=== PATIENT | female | born 1985 | race Caucasian/White ===

== ENCOUNTER 2019-08-15 12:24 | Outpatient (RCR) | payer BC, SELFPAY ==
[2019-08-15] MEDS: RHO(D) IMMUNE GLOBULIN 300 MCG SYRINGE IM (16:25)
== END 2019-11-13 23:59 | disposition home or self-care (01) ==
LOC: ANHLAB 12:24
PROVIDERS: Visit Provider Obstetrics & Gynecology
DX: Z29.13 Encounter for prophylactic Rho(D) immune globulin (principal); O36.0990 Maternal care for other rhesus isoimmunization, unspecified trimester, not applicable or unspecified; Z3A.00 Weeks of gestation of pregnancy not specified
CPT/HCPCS: 36415; 86900; 86901; 90384; 96372; J2790

== ENCOUNTER 2019-10-21 09:58 | Observation (INO) | payer BC, SELFPAY ==
[2019-10-21 10:45] VITALS: BP 137/94; PULSE 117
--- NOTE | 2019-10-21 10:56 | PC.NURSE ---
Pt was sent down from 's office for PIH workup and rule out labor. Pt's SVE was 3-4cm in the office. Orders received for PIH labs and monitor pt for contractions.
[2019-10-21 11:00] LABS: Basophils Percent Auto 0.4 % (0.2-1.2); Eosinophils Absolute Auto 0.1 K/mm3 (0-0.3); Eosinophils Percent Auto 1.3 % (0-4.4); Hematocrit 33.7 % (37.0-47.0); Hemoglobin 10.9 g/dL (12.0-15.0); Immature Granulocyte Absolute 0.06 K/mm3 (0.00-0.031); Immature Granulocyte Percent A 0.6 % (0-0.5); Lymphocytes Absolute Auto 1.83 K/mm3 (0.9-3.2); Lymphocytes Percent Auto 19.7 % (18.3-44.2); Mean Corpuscular HGB Conc 32.3 g/dl (32-36); Mean Corpuscular Hemoglobin 26.1 pg (26-34); Mean Corpuscular Volume 80.8 fl (80-100); Monocytes Absolute Auto 0.6 K/mm3 (0.1-0.6); Monocytes Percent Auto 6.5 % (2.6-8.5); Neutrophils Absolute Auto 6.7 K/mm3 (1.3-6.7); Neutrophils Percent Auto 71.5 % (45.5-73.1); Platelet Count Result 214 k/mm3 (150-375); Red Blood Count 4.17 M/mm3 (4.2-5.4); Red Cell Distribution Width 13.3 % (11.5-14.5); White Blood Count 9.3 K/mm3 (4.5-10.0)
[2019-10-21 11:01] VITALS: BP 116/76; PULSE 108
[2019-10-21 11:10] LABS: Alanine Aminotransferase 17 U/L (4-35); Albumin Level 3.6 g/dL (3.5-5.1); Alkaline Phosphatase 156 U/L (38-126); Aspartate Amino Transferase 28 U/L (14-36); Bilirubin,Total 0.3 mg/dL (0.2-1.3); Blood Urea Nitrogen 6 mg/dL (7-17); Calcium 8.6 mg/dL (8.4-10.2); Carbon Dioxide 23 mmol/L (22-30); Chloride 105 mmol/L (98-107); Estimated Glomerular Filt Rate > 60; Glucose 136 mg/dL (65-105); Potassium 3.7 mmol/L (3.4-5.0); Sodium 134 mmol/L (137-145); Uric Acid 4.4 mg/dL (2.5-7.5)
[2019-10-21 11:13] LABS: Add Urine Microscopic? YES; Appearance Urine Cloudy (Clear); Bacteria Urine 3+ /hpf; Bilirubin Urine Negative (Negative); Blood Urine Negative (Negative); Color Urine Yellow (Yellow); Glucose Urine UA Negative (Negative); Ketones Urine Negative (Negative); Leukocyte Esterase Ur 3+ LEU/UL (NEGATIVE); Nitrate Urine Negative (Negative); Protein Urine 1+ mg/dL (Negative); Specific Grav Ur 1.012 (1.001-1.035); Squamous Epithelial Cell Urine Many /hpf (Few); Urobilinogen Urine Negative mg/dL (<2.0); WBC Urine 31-50 /hpf (0-3)
[2019-10-21 11:15] VITALS: BP 127/80; PULSE 109
[2019-10-21 11:30] VITALS: BP 129/79; PULSE 104
[2019-10-21 11:40] LABS: Creatinine Urine 51.3 mg/dL; Total Protein Urine Random 14 mg/dL
[2019-10-21 11:45] VITALS: BP 133/79; PULSE 101
[2019-10-21 12:00] VITALS: BP 126/79; PULSE 101
--- NOTE | 2019-10-21 12:52 | PC.NURSE ---
1144- called with lab results and bp's. Informed pt hasn't had any contractions since she's been here. Orders received to discharge pt home with labor precautions.
--- NOTE | 2019-10-23 08:13 | PM.OBTRLD ---
OB - Triage/Final Diagnosis Evaluation Laboratory results: Laboratory Tests 10/21/19 10/21/19 10/21/19 10:45 10:45 10:45 WBC 9.3 RBC 4.17 L Hgb 10.9 L Hct 33.7 L MCV 80.8 MCH 26.1 MCHC 32.3 RDW 13.3 Plt Count 214 MPV 11.0 H Immature Gran % (Auto) 0.6 H Neut % (Auto) 71.5 Lymph % (Auto) 19.7 [place] % (Auto) 6.5 Eos % (Auto) 1.3 Baso % (Auto) 0.4 Lymph # (Auto) 1.83 [place] # (Auto) 0.6 Eos # (Auto) 0.1 Baso # (Auto) 0.0 Abs Immat Gran (auto) 0.06 H Absolute Neuts (auto) 6.7 Absolute Nucleated RBC 0.0 Nucleated RBC % 0.0 Sodium Potassium Chloride Carbon Dioxide BUN Creatinine Estim Creat Clear Calc Estimated GFR Glucose Uric Acid Calcium Total Bilirubin AST ALT Alkaline Phosphatase Total Protein Albumin Urine Color Yellow Urine Appearance Cloudy H Urine pH 7.0 Ur Specific [place] 1.012 Urine Protein 1+ H Urine Glucose (UA) Negative Urine Ketones Negative Ur Blood (Man) Negative Urine Nitrate Negative Urine Bilirubin Negative Urine Urobilinogen Negative Ur Leukocyte Esterase 3+ H Urine RBC 3-5 H Urine WBC 31-50 H Ur Squamous Epith Cells Many H Urine Bacteria 3+ H U Random Total Protein 14 Urine Creatinine 51.3 10/21/19 10:45 WBC RBC Hgb Hct MCV MCH MCHC RDW Plt Count MPV Immature Gran % (Auto) Neut % (Auto) Lymph % (Auto) [place] % (Auto) Eos % (Auto) Baso % (Auto) Lymph # (Auto) [place] # (Auto) Eos # (Auto) Baso # (Auto) Abs Immat Gran (auto) Absolute Neuts (auto) Absolute Nucleated RBC Nucleated RBC % Sodium 134 L Potassium 3.7 Chloride 105 Carbon Dioxide 23 BUN 6 L Creatinine 0.40 L Estim Creat Clear Calc Not Reportable Estimated GFR > 60 Glucose 136 H Uric Acid 4.4 Calcium 8.6 Total Bilirubin 0.3 AST 28 ALT 17 Alkaline Phosphatase 156 H Total Protein 7.0 Albumin 3.6 Urine Color Urine Appearance Urine pH Ur Specific [place] Urine Protein Urine Glucose (UA) Urine Ketones Ur Blood (Man) Urine Nitrate Urine Bilirubin Urine Urobilinogen Ur Leukocyte Esterase Urine RBC Urine WBC Ur Squamous Epith Cells Urine Bacteria U Random Total Protein Urine Creatinine Final Diagnosis (1) False labor: Code(s): O47.9 - False labor, unspecified Status: Acute
== END 2019-10-21 12:15 | disposition home or self-care (01) ==
LOC: ANHLDR 12:03 → ANHOBOP 10-22 14:03 → ANHLDR 10-22 14:03 → ANHOBOP 10-22 14:03 → ANHLDR 10-22 14:04
PROVIDERS: Admitting Provider Obstetrics & Gynecology; Visit Provider Obstetrics & Gynecology
DX: O47.9 False labor, unspecified (principal); Z3A.00 Weeks of gestation of pregnancy not specified
CPT/HCPCS: 36415; 80053; 81001; 82570; 84156; 84550; 85025; 99199; G0378; G0379

== ENCOUNTER 2019-10-27 05:02 | Inpatient (IN) | payer BC, SELFPAY ==
[2019-10-27] VITALS (110 sets, daily range): BP systolic 76–153; BP diastolic 47–118; PULSE 66–180; RESP 14–17; TEMP 36.1–37.1; O2SAT 87–100; BMI 40.8
[2019-10-27 05:42] LABS: Basophils Percent Auto 0.4 % (0.2-1.2); Eosinophils Absolute Auto 0.2 K/mm3 (0-0.3); Hematocrit 32.6 % (37.0-47.0); Hemoglobin 10.7 g/dL (12.0-15.0); Immature Granulocyte Absolute 0.06 K/mm3 (0.00-0.031); Immature Granulocyte Percent A 0.7 % (0-0.5); Lymphocytes Absolute Auto 2.01 K/mm3 (0.9-3.2); Lymphocytes Percent Auto 24.1 % (18.3-44.2); Mean Corpuscular HGB Conc 32.8 g/dl (32-36); Mean Corpuscular Hemoglobin 26.3 pg (26-34); Mean Corpuscular Volume 80.1 fl (80-100); Mean Platelet Volume 11.7 fl (7.4-10.4); Monocytes Absolute Auto 0.7 K/mm3 (0.1-0.6); Monocytes Percent Auto 7.8 % (2.6-8.5); Neutrophils Absolute Auto 5.4 K/mm3 (1.3-6.7); Platelet Count Result 193 k/mm3 (150-375); Red Blood Count 4.07 M/mm3 (4.2-5.4); Red Cell Distribution Width 13.4 % (11.5-14.5); White Blood Count 8.3 K/mm3 (4.5-10.0)
--- NOTE | 2019-10-27 06:27 | LDADM ---
This patient, Mona Hoyt, was admitted to Labor/Delivery/Recovery 103 on 10/27/19 at 05:02. Plans for labor, pain management and were discussed with patient. Patient/family oriented to hospital policies and general routines including ID bracelet, bed and alarms, visiting hours, pain management, procedures, bathroom and other care routines, personal items, smoking policy, room service/diet and guest tray routines, infant security routines, and visiting hours. Patient/Family are encouraged to report perceived risks to care and to ask questions if they do not understand what they are told or what they should do. See OBIX for further documentation.
[2019-10-27] MEDS: LACTATED RINGERS 1,000 ML 125 ML IV CONT ×2 (06:31→08:04)
[2019-10-27] MEDS: OXYTOCIN 30 UNITS/NS 500 ML 30 UNITS/500 ML BAG IV CONT (06:32)
--- NOTE | 2019-10-27 07:27 | WPDANESEPP ---
Anes - Eval Pre Procedure Procedure: Labor epidural Date/Time: 10/27/19 07:27 Surgeon: Guerline Preop Diagnosis: pain during labor Pre Op Diagnosis: Induction Patient Data Age: 34 Gender: F Height: 1.55 m Weight: 98 kg Last Vital Signs Temp 37.1 C 10/27/19 05:23 Pulse 92 10/27/19 07:16 BP 146/93 H 10/27/19 07:16 Pulse Ox 99 10/27/19 07:23 Allergies Allergy/AdvReac Type Severity Reaction Status Date / Time No Known Allergies Allergy Verified 10/03/19 13:36 Home Medications Medication Instructions Recorded Confirmed Type PNV cmb#95-ferrous fumarate-FA 1 tablet PO DAILY 10/03/19 10/27/19 History [] Unisom (doxylamine) 25 mg PO HS PRN 10/03/19 10/27/19 History famotidine [Pepcid] 20 mg PO DAILY 10/03/19 10/27/19 History loratadine [Claritin] 10 mg PO DAILY PRN 10/03/19 10/27/19 History Laboratory Tests 10/27/19 10/27/19 05:32 05:32 WBC 8.3 K/mm3 K/mm3 (4.5-10.0) RBC 4.07 M/mm3 L M/mm3 (4.2-5.4) Hgb 10.7 g/dL L g/dL (12.0-15.0) Hct 32.6 % L % (37.0-47.0) MCV 80.1 fl fl (80-100) MCH 26.3 pg pg (26-34) MCHC 32.8 g/dl g/dl (32-36) RDW 13.4 % % (11.5-14.5) Plt Count 193 k/mm3 k/mm3 (150-375) MPV 11.7 fl H fl (7.4-10.4) Immature Gran % (Auto) 0.7 % H % (0-0.5) Neut % (Auto) 65.0 % % (45.5-73.1) Lymph % (Auto) 24.1 % % (18.3-44.2) [place] % (Auto) 7.8 % % (2.6-8.5) Eos % (Auto) 2.0 % % (0-4.4) Baso % (Auto) 0.4 % % (0.2-1.2) Lymph # (Auto) 2.01 K/mm3 K/mm3 (0.9-3.2) [place] # (Auto) 0.7 K/mm3 H K/mm3 (0.1-0.6) Eos # (Auto) 0.2 K/mm3 K/mm3 (0-0.3) Baso # (Auto) 0.0 K/mm3 K/mm3 (0.0-0.1) Abs Immat Gran (auto) 0.06 K/mm3 H K/mm3 (0.00-0.031) Absolute Neuts (auto) 5.4 K/mm3 K/mm3 (1.3-6.7) Absolute Nucleated RBC 0.0 K/mm3 K/mm3 (0.0-0.012) Nucleated RBC % 0.0 % % (0.0-0.2) RPR Pending Patient hx anesthesia problems: none Family hx anesthesia problems: none [facility] Family History Family History (Updated 10/03/19 @ 13:42 by Tiffanie Nobles RN) Mother Depression Hypertension Sibling Depression Family history of attention deficit hyperactivity disorder (ADHD) Father Patient's father is in good health Grandparent Esophageal cancer Social History Social History Smoking status: Never smoker Second hand tobacco smoke exposure: No Alcohol intake: never Substance use: never Spiritual care concerns: No Exam Day of Procedure 10/27/19 07:27
--- NOTE | 2019-10-27 08:30 | WPDOBADMIT ---
Obstetrics - Admit Note Admission Note: record reviewed. Additions to the history and/or subsequent changes in the physical findings follow. 34 y/o at 39 1/7 weeks here for induction of labor. AVSS NST reactive TOCO: contractions every 2-4 min ABD soft, nontender, gravid, vertex EXT nontender Cervix 4-5/50/-2. AROM with clear fluid. Vertex. A: IUP at term with favorable cervix, desires induction. P: Oxytocin. Anticipate .
[2019-10-27 11:42] LABS: Rapid Plasma Reagin Non-Reactive (NonReactive)
[2019-10-27] MEDS: OXYTOCIN 30 UNITS/NS 500 ML 30 UNITS/500 ML BAG 125 UNITS IV CONT (12:28)
--- NOTE | 2019-10-27 18:12 | PM.OBPRVD ---
OB - Delivery Note Procedure Delivery date: 10/27/19 Procedure: Induction of labor with . Induction method: AROM and per pitocin protocol Delivery augmentation: rupture of membranes and pitocin Delivery monitor: external FHT and external uterine Route of delivery: Laceration description: Perineal - 1st Degree Delivery repair: vicryl (3-0 Vicryl) Specimen: Yes (Cord blood) Estimated blood loss (mL): 110 Anesthesia type: Epidural Disposition: PACU Complications: None Narrative: 34 y/o at 39 1/7 weeks gestation who presented to the hospital for induction of labor. Oxytocin was administered intravenously. Amniotomy was performed with return of clear fluid. She received an epidural for pain control. Her labor progressed and her cervix dilated completely. She pushed with good effort and delivered the infant's head to the perineum, followed by the body. The nose and mouth were bulb suctioned. After a delay, the cord was clamped and cut. The was handed off the field. Cord blood was collected. The placenta delivered spontaneously and was grossly normal in appearance. The usual 3 vessel cord was noted. A first degree midline perineal laceration was sustained. This was reapproximated using 3 0 Vicryl in interrupted figure of eight fashion. Excellent hemostasis resulted as did excellent reapproximation of the normal anatomy. Needle and instrument counts were correct. The patient was taken to recovery room in stable condition. The infant went to the nursery in stable condition. I was present and scrubbed for the entire delivery. [place] [facility] Date of : 10/27/19 Time of : 11:53 Weeks of gestation at delivery: 39 gender: Female Weight (pounds): 7 Weight (ounces): 5 presentation: vertex position: Right Occiput Anterior Placenta delivery description: Spontaneous and Normal Configuration cord vessel description: 3 Vessels score one minute: 8 score five minutes: 9
--- NOTE | 2019-10-27 18:22 | PM.OBDSVD ---
DS: Admitting Diagnosis Admitting Diagnosis Admitting Diagnosis: IUP at term Favorable cervix <Archie Cunha MD - Last Filed: 10/27/19 18:23> DS: Discharge Diagnosis Discharge Diagnosis (1) (normal spontaneous vaginal delivery): Code(s): O80 - Encounter for full-term uncomplicated delivery <Archie Cunha MD - Last Filed: 10/27/19 18:23> Status: Acute <Archie Cunha MD - Last Filed: 10/27/19 18:23> OB - DS: Summary OB Procedures : None <Eladio Cox MD - Last Filed: 10/28/19 07:18> OB Procedures Intrapartum: Spontaneous Vag Delivery <Eladio Cox MD - Last Filed: 10/28/19 07:18> OB Procedures: : None <Eladio Cox MD - Last Filed: 10/28/19 07:18> Time Spent with Patient Time attestation: Total time spent providing and/or coordinating discharge services: <Archie Cunha MD - Last Filed: 10/27/19 18:23> DS: Data Data Completed and Pending Labs on day of discharge: Labs from last 24 hours 10/27/19 10/27/19 10/27/19 05:32 05:32 05:31 WBC 8.3 RBC 4.07 L Hgb 10.7 L Hct 32.6 L MCV 80.1 MCH 26.3 MCHC 32.8 RDW 13.4 Plt Count 193 MPV 11.7 H Immature Gran % (Auto) 0.7 H Neut % (Auto) 65.0 Lymph % (Auto) 24.1 [place] % (Auto) 7.8 Eos % (Auto) 2.0 Baso % (Auto) 0.4 Lymph # (Auto) 2.01 [place] # (Auto) 0.7 H Eos # (Auto) 0.2 Baso # (Auto) 0.0 Abs Immat Gran (auto) 0.06 H Absolute Neuts (auto) 5.4 Absolute Nucleated RBC 0.0 Nucleated RBC % 0.0 RPR Non-reactive Blood Type O Negative Antibody Screen Positive Antibody Identification Inconclusive Antigen Identification Cancelled BIRD, IgG Interpret Not Performed BIRD, Poly Interpret Negative BIRD, Complement Interp Not Performed <Archie Cunha MD - Last Filed: 10/27/19 18:23> Discharge Plan Discharge Attending physician on discharge: Archie Cunha <Archie Cunha MD - Last Filed: 10/27/19 18:23> Archie Cunha <Eladio Cox MD - Last Filed: 10/28/19 07:18> Discharging Clinician: Archie Cunha <Archie Cunha MD - Last Filed: 10/27/19 18:23> Archie Cunha <Eladio Cox MD - Last Filed: 10/28/19 07:18> Patient Disposition: Home, Self-Care <Archie Cunha MD - Last Filed: 10/27/19 18:23> Activity: pelvic rest <Archie Cunha MD - Last Filed: 10/27/19 18:23> pelvic rest <Eladio Cox MD - Last Filed: 10/28/19 07:18> Diet: regular <Archie Cunha MD - Last Filed: 10/27/19 18:23> regular <Eladio Cox MD - Last Filed: 10/28/19 07:18> Discharge Instructions: Education: Mom and Baby Guide Given to: Mother Follow-Up: Call your delivering provider's office for an appointment to be seen in: 6 Weeks Mom and baby should come to the [facility] for the follow-up appointment. Appointment Date/Time: October 30, 2019 at 11:00 am What to expect at your follow-up visit: Blood Pressure Check Physical Assessment Call [phone] if you are unable to keep your appointment time. BREAST CARE: 1. Wear a snug supportive bra. 2. For engorgement discomfort: Bottle Feeding: A. May apply ice packs PERINEAL CARE: 1. Until bleeding stops, use your ifeanyi bottle after urinating 2. Change your pad frequently throughout the day 3. You may take sitz baths several times a day (fill your bathtub with warm water and soak for 20 minutes.) Do NOT bathe in the water 4. No tub baths until seen by your physician - You may shower ACTIVITY: 1. Rest as much as possible. 2. Do not exercise or lift anything heavier than your baby (such as laundry or other children.) 3. Avoid stairs or driving as much as possible. 4. Do not put anything into the vagina. No douching, tampons, or sexual activity until seen by physician.
[2019-10-27] MEDS: IBUPROFEN 600 MG TABLET PO (20:59)
[2019-10-28 05:21] LABS: Hematocrit 31.3 % (37.0-47.0); Hemoglobin 10.1 g/dL (12.0-15.0)
[2019-10-28 08:05] VITALS: BP 130/90; PULSE 96; RESP 18; TEMP 37.4; O2SAT 98
--- NOTE | 2019-10-28 09:04 | WPDANLDPN2 ---
Anes-Prog Note L&D Date/Time: 10/28/19 09:04 Comfortable throughout: labor Neuraxial method: epidural Epidural/Spinal procedure site: clean & non-tender Neuro status: Neuro function grossly intact. Cardiovascular status: normal Respiratory status: normal Airway patency: baseline Mental status: baseline Post-Op hydration status: normal Vital Signs: Last Vital Signs Temp 37.0 C 10/27/19 20:19 Pulse 107 H 10/27/19 20:19 Resp 17 10/27/19 20:19 BP 131/86 10/27/19 20:19 Pulse Ox 100 10/27/19 11:51 Post-procedural complaints: none Patient feedback: Patient satisfied with anesthetic care.
[2019-10-28] MEDS: RHO(D) IMMUNE GLOBULIN 300 MCG SYRINGE IM (12:17)
[2019-10-30 11:23] VITALS: BP 134/83; PULSE 82; RESP 22
== END 2019-10-28 13:45 | disposition home or self-care (01) | DRG 807 ==
LOC: ANHLDR 05:16 → ANHOB2 17:28 → ANHLDR 10-29 12:03 → ANHOB2 10-29 12:03
PROVIDERS: Admitting Provider Obstetrics & Gynecology; Visit Provider Student in an Organized Health Care Education/Training Program
DX: O69.81X0 Labor and delivery complicated by cord around neck, without compression, not applicable or unspecified (principal); Z37.0 Single live birth; Z3A.39 39 weeks gestation of pregnancy
CPT/HCPCS: 36415; 85014; 85018; 85025; 85461; 86592; 86850; 86880; 86900; 86901; 86902; 90384; A9270; J2590; J2790; J2795; J7120